=== PATIENT | male | born 1995 | race Caucasian/White ===

== ENCOUNTER 2018-09-27 18:04 | Emergency (ER) | payer BC, SELFPAY ==
[2018-09-27 18:05] VITALS: BP 117/79; PULSE 98; RESP 15; TEMP 37; O2SAT 96; BMI 25.9
--- NOTE | 2018-09-27 18:38 | ED.VISSUMM ---
- ER Visit Summary Date of Service: 09/27/18 Chief Complaint: [] Left-sided neck pain while stretching lower extremities History of Present Illness: The patient is a 23 M [] patient is healthy he has a history of lumbar back disorder unspecified reasons he is gone for the local [employer] he was repairing for a golf match and he basically had a rolling device underneath his calves as he was seated he was stretching he had no tension or trauma to his upper body back or neck but it felt a pulling sensation to the left neck during this activity, He had no direct trauma he had no numbness weakness paresthesias he completed playing the match and had persistent discomfort and a pulling sensation to the left lateral neck and he came in for evaluation, he is here with his parents, he has no numbness weakness paresthesias no headache no chest pain abdominal pain no change in his chronic low back pain no instability deformity or lack of function Per the family his low lumbar back pain is related to rapid growth spurt and musculoskeletal strain Physical Examination: [] Vital signs are within normal range General, no distress resting comfortably HEENT is generally unremarkable The neck is supple no adenopathy, he has full range of motion he has no pain to palpation over the C-spine he has a vague pain to the left paracervical musculature he has strong carotid upstrokes no bruits he is able to flex and extend the neck, his HEENT exam is otherwise unremarkable Cardiovascular, regular rate and rhythm Lungs, clear bilateral Abdomen, soft nontender Extremities, no clubbing cyanosis or edema full range of motion without pain he is able to stand and walk without difficulty neurovascular function and pulses are normal his back is unremarkable to palpation Neurologic, awake alert answering questions appropriately moving all 4 extremities Test Results: [] Emergency Department Course and Treatment: [] Long conversation the patient his family explaining the exact etiology of the sense of pulling was unclear I explained we could obtain a CT of the neck to look for any acute gross abnormalities that might explain his some of his symptoms but he declined that, at this time he is in the family comfortable discharge home to follow-up with orthopedics for further management, he was given Naprosyn 500 mg here he will take Naprosyn at home he will avoid golfing follow-up with orthopedics corrections sergeant and return for change in symptoms Treatment Plan: [] Disposition: [] Home stable Impression: [] Left paracervical neck strain while stretching lower extremities This note was generated with [employer] dictation software. It may contain incorrect words, spelling, and punctuation that were not noted in review of the chart prior to signing ED Disposition - Plan for ED Patient: Referrals: [facility] Doctor,Out of [Primary Care Provider] -
--- NOTE | 2018-09-27 18:42 | DCINST.ED_ITS ---
ED Disposition - Plan for ED Patient: Instructions: ED Spasm Back No Trauma Referrals: [facility] Doctor,Out of [Primary Care Provider] - Ted Machado MD [STAFF PHYSICIAN] -
--- NOTE | 2018-09-27 18:42 | ED.DCSUM_ITS ---
- ER Visit Summary Date of Service: 09/27/18 Chief Complaint: [] Left-sided neck pain while stretching lower extremities History of Present Illness: The patient is a 23 M [] patient is healthy he has a history of lumbar back disorder unspecified reasons he is gone for the local [employer] he was repairing for a golf match and he basically had a rolling device underneath his calves as he was seated he was stretching he had no tension or trauma to his upper body back or neck but it felt a pulling sensation to the left neck during this activity, He had no direct trauma he had no numbness weakness paresthesias he completed playing the match and had persistent discomfort and a pulling sensation to the left lateral neck and he came in for evaluation, he is here with his parents, he has no numbness weakness paresthesias no headache no chest pain abdominal pain no change in his chronic low back pain no instability deformity or lack of function Per the family his low lumbar back pain is related to rapid growth spurt and musculoskeletal strain Physical Examination: [] Vital signs are within normal range General, no distress resting comfortably HEENT is generally unremarkable The neck is supple no adenopathy, he has full range of motion he has no pain to palpation over the C-spine he has a vague pain to the left paracervical musculature he has strong carotid upstrokes no bruits he is able to flex and extend the neck, his HEENT exam is otherwise unremarkable Cardiovascular, regular rate and rhythm Lungs, clear bilateral Abdomen, soft nontender Extremities, no clubbing cyanosis or edema full range of motion without pain he is able to stand and walk without difficulty neurovascular function and pulses are normal his back is unremarkable to palpation Neurologic, awake alert answering questions appropriately moving all 4 extremities Test Results: [] Emergency Department Course and Treatment: [] Long conversation the patient his family explaining the exact etiology of the sense of pulling was unclear I explained we could obtain a CT of the neck to look for any acute gross abnormalities that might explain his some of his symptoms but he declined that, at this time he is in the family comfortable discharge home to follow-up with orthopedics for further management, he was given Naprosyn 500 mg here he will take Naprosyn at home he will avoid golfing follow-up with orthopedics promotional representative and return for change in symptoms Treatment Plan: [] Disposition: [] Home stable Impression: [] Left paracervical neck strain while stretching lower extremities This note was generated with [employer] dictation software. It may contain incorrect words, spelling, and punctuation that were not noted in review of the chart prior to signing ED Disposition - Plan for ED Patient: Referrals: [facility] Doctor,Out of [Primary Care Provider] -
[2018-09-27] MEDS: Naproxen 500 MG Tablet PO (18:49)
== END 2018-09-27 19:01 | disposition home or self-care (01) ==
LOC: ED 18:58
PROVIDERS: Emergency Provider Emergency Medicine; Family Provider Family Medicine; PCP Family Medicine
DX: S16.1XXA Strain of muscle, fascia and tendon at neck level, initial encounter (principal); M54.2 Cervicalgia; X58.XXXA Exposure to other specified factors, initial encounter; Y93.89 Activity, other specified; Y92.89 Other specified places as the place of occurrence of the external cause; Y99.8 Other external cause status
CPT/HCPCS: 99283